=== PATIENT | female | born 2000 | race Caucasian/White ===

== ENCOUNTER 2023-02-07 08:27 | Outpatient (CLI) | payer OTHER, SELFPAY ==
[2023-02-07 14:13] LABS: GC DNA Amplified* NOT DETECTED (No Detected)
[2023-02-07 14:26] LABS: Chlamydia DNA Amplified* DETECTED (No Detected)
== END 2023-02-07 08:28 | disposition home or self-care (01) ==
LOC: LKVREF 08:27
PROVIDERS: PCP Physician Assistant Medical; Visit Provider Physician Assistant Medical
DX: Z00.00 Encounter for general adult medical examination without abnormal findings (principal); Z11.3 Encounter for screening for infections with a predominantly sexual mode of transmission
CPT/HCPCS: 87491; 87591

== ENCOUNTER 2024-12-12 09:11 | Outpatient (CLI) | payer OTHER, SELFPAY | END 2024-12-12 09:12 | disposition home or self-care (01) | LOC: NFLDREF 12-13 10:06 | PROVIDERS: PCP Physician Assistant Medical; Referring Provider Physician Assistant Medical; Visit Provider Physician Assistant Medical | DX: Z11.1 Encounter for screening for respiratory tuberculosis (principal); Z11.3 Encounter for screening for infections with a predominantly sexual mode of transmission | CPT/HCPCS: 86480; 86592 ==